=== PATIENT | female | born 1965 | race Caucasian/White ===

== ENCOUNTER 2017-01-15 21:15 | Inpatient (IN) | payer BC ==
[2017-01-15 23:03] LABS: HEMOGLOBIN 12.2 gm/dl (12.3-15.3); RED BLOOD COUNT 3.96 M/UL (4.00-5.10); WHITE BLOOD COUNT 23.3 K/UL (4.5-11.0)
[2017-01-15 23:24] LABS: BUN/CREATININE RATIO 20 (0-10)
[2017-01-16] MEDS ORDERED: SYNTHROID112 MCG PO (03:49)
[2017-01-16 08:21] LABS: HEMOGLOBIN 10.5 gm/dl (12.3-15.3)
[2017-01-16 08:31] LABS: BUN/CREATININE RATIO 25 (0-10)
[2017-01-16 08:38] LABS: RED BLOOD COUNT 3.39 M/UL (4.00-5.10)
[2017-01-17 06:03] LABS: HEMOGLOBIN 10.5 gm/dl (12.3-15.3); RED BLOOD COUNT 3.39 M/UL (4.00-5.10)
[2017-01-17 06:20] LABS: BUN/CREATININE RATIO 18 (0-10); WHITE BLOOD COUNT 10.5 K/UL (4.5-11.0)
[2017-01-17] MEDS ORDERED: LEVAQUIN750 MG PO (13:44)
== END 2017-01-17 15:54 | disposition home or self-care (01) | DRG 871 ==
LOC: ER1 21:15 → M/S 23:55 → ZEROF 23:55 → M/S 01-16 03:22
PROVIDERS: Physician Assistant; Physician Assistant Medical; ADMIT Internal Medicine
DX: A41.9 Sepsis, unspecified organism (principal); J18.9 Pneumonia, unspecified organism; E89.0 Postprocedural hypothyroidism; E87.6 Hypokalemia; Z85.850 Personal history of malignant neoplasm of thyroid; Z79.899 Other long term (current) drug therapy
CPT/HCPCS: 36415; 36600; 71010; 71020; 80048; 80053; 81001; 82803; 83605; 83735; 85025; 85027; 86403; 87040; 87081; 87086; 87880; 96361; 96365; 99284; J1956; J7030

== ENCOUNTER 2021-10-03 17:35 | Emergency (ER) | payer BC ==
[~2021-10-03 17:35] MED LIST: LEVAQUIN750 MG PO; SYNTHROID112 MCG PO
== END 2021-10-03 22:17 | disposition home or self-care (01) ==
LOC: ER1 17:35
DX: U07.1 COVID-19 (principal); Z23 Encounter for immunization
CPT/HCPCS: 99283; M0245